=== PATIENT | female | born 1980 | race Caucasian/White ===

== ENCOUNTER 2018-07-13 00:14 | Emergency (ER) | payer MEDICAID, OTHER ==
[2018-07-13] MEDS ORDERED: ONDANSETRON HCL INJ/PF 4 MG/2 ML SDV IV ONE (01:07)
--- NOTE | 2018-07-13 01:09 | ER Document Report ---
ED Medical Screen (RME) - General Chief Complaint: Nausea/Vomiting Stated Complaint: POSSIBLE DEHYDRATION Time Seen by Provider: 07/13/18 01:06 Mode of Arrival: Wheelchair Information source: Patient Notes: 37-year-old female presents to ED for complaint of abdominal pain nausea vomiting and diarrhea for the last 4-5 days. She states she is going through Suboxone withdrawals. She states she has a history of heroin addiction but has not had any in 4 years. She states she does have some marijuana in the system. She states she took some ODT Zofran at 830 but states it did not do her any good and she has been vomiting still. States she has a history of ADHD and had is on Adderall. Only other medical history she is current states is a bilateral tubal ligation and appendectomy. She states she does not smoke drink or do any drugs. Patient is spitting when examined but there was no emesis in the back at the time of assessment. She does have abdominal tenderness. She is curled up in the bed. She denies smoking drinking or any other drugs. She states she has not been able to keep anything down for several days. I have greeted and performed a rapid initial assessment of this patient. A comprehensive ED assessment and evaluation of the patient, analysis of test results and completion of medical decision making process will be conducted by an additional ED providers. TRAVEL OUTSIDE OF THE [place] IN LAST 30 DAYS: No - Related Data Allergies/Adverse Reactions: No Known Allergies Allergy (Unverified 07/13/18 00:20) Physical Exam - Vital signs Vitals: Temp Pulse Resp BP Pulse Ox 99.2 F 62 16 142/101 H 99 07/13/18 00:21 07/13/18 00:21 07/13/18 00:21 07/13/18 00:21 07/13/18 00:21 Course - Vital Signs Vital signs: Temp Pulse Resp BP Pulse Ox 99.2 F 62 16 142/101 H 99 07/13/18 00:21 07/13/18 00:21 07/13/18 00:21 07/13/18 00:21 07/13/18 00:21 Doctor's Discharge - Discharge Referrals: LOCALMD,NO [Primary Care Provider] - Follow up as needed
[2018-07-13] MEDS ORDERED: PROMETHAZINE HCL INJ 25 MG/1 ML VIAL IM ONE (01:14)
[2018-07-13] MEDS ORDERED: CLONIDINE 0.1 MG/24 HR PATCH.TDWK TD ONE (01:15)
--- NOTE | 2018-07-13 01:17 | ER Document Report ---
ED General - General Chief Complaint: Nausea/Vomiting Stated Complaint: POSSIBLE DEHYDRATION Time Seen by Provider: 07/13/18 01:06 Mode of Arrival: Wheelchair Notes: Patient is a 37-year-old female that comes to emergency department for chief complaint of having withdrawal symptoms from stopping Subutex. She states she stopped 5 days ago, she states some days been better but today she had multiple episodes of vomiting and could not stop. She denies diarrhea, fever, passing out, hematemesis. She states that she is on Subutex to stop the heroin addiction but now she does not want to take anything other than the Adderall she takes for ADHD. She did take ODT Zofran at 2030 but this did not help. She has her hand sander at bedside who she is staying with. She denies SI or HI. She denies alcohol, tobacco, she occasionally smokes marijuana for anxiety, she states that she has had a tubal ligation and appendectomy, denies medical history otherwise. TRAVEL OUTSIDE OF THE [place] IN LAST 30 DAYS: No - Related Data Allergies/Adverse Reactions: No Known Allergies Allergy (Unverified 07/13/18 00:20) Past Medical History - General Information source: Patient - Social History Smoking Status: Former Smoker Drug Abuse: Heroin, Prescription drugs Lives with: Friend Family History: Reviewed & Not Pertinent Surgical Hx: Negative - Immunizations Hx Diphtheria, Pertussis, Tetanus Vaccination: Yes Review of Systems - Review of Systems Constitutional: No symptoms reported EENT: No symptoms reported Cardiovascular: No symptoms reported Respiratory: No symptoms reported Gastrointestinal: See HPI Genitourinary: No symptoms reported Female Genitourinary: No symptoms reported Musculoskeletal: No symptoms reported Skin: No symptoms reported Hematologic/Lymphatic: No symptoms reported Neurological/Psychological: See HPI Physical Exam - Vital signs Vitals: Temp Pulse Resp BP Pulse Ox 99.2 F 62 16 142/101 H 99 07/13/18 00:21 07/13/18 00:21 07/13/18 00:21 07/13/18 00:21 07/13/18 00:21 - Notes Notes: GENERAL: Tired but still alert, disheveled, no distress HEAD: Normocephalic, atraumatic. EYES: Pupils equal, round, and reactive to light. Extraocular movements intact. ENT: Oral mucosa dry, tongue midline. NECK: Full range of motion. Supple. Trachea midline. LUNGS: Clear to auscultation bilaterally, no wheezes, rales, or rhonchi. No respiratory distress. HEART: Regular rate and rhythm. No murmur ABDOMEN: Minimal generalized tenderness, no guarding. Non-distended. Bowel sounds present in all 4 quadrants. EXTREMITIES: Moves all 4 extremities spontaneously. No edema, normal radial and dorsalis pedis pulses bilaterally. No cyanosis. BACK: no cervical, thoracic, lumbar midline tenderness. No saddle anesthesia, normal distal neurovascular exam. NEUROLOGICAL: Alert and oriented x3. Normal speech. [cranial nerves II through XII grossly intact]. PSYCH: Patient is apologetic, still interactive, no significant anxiety or distress noted SKIN: Warm, dry, normal turgor. No rashes or lesions noted. Course - Re-evaluation Re-evalutation: Patient restless and tired appearing, interactive, denies SI or HI, states she just needs help with her symptoms for withdrawals. Given Phenergan IM, clonidine patch, gabapentin. Patient fell asleep. On waking up she states she feels much better, she denies any current symptoms, she tolerated fluids without difficulty p.o. she states she is ready to go home with her friend. Chemistry unremarkable, urinalysis unremarkable, drug screen as expected. HCG is negative. Discharged with recommendations for primary care follow-up for additional management, discussed expectations, discussed return precautions. Patient states understanding and agreement. - Vital Signs Vital signs: Temp Pulse Resp BP Pulse Ox 99.2 F 71 16 127/78 H 100 07/13/18 00:21 07/13/18 05:00 07/13/18 05:00 07/13/18 05:00 07/13/18 05:00 - Laboratory Result Diagrams: 07/13/18 03:39 Laboratory results interpreted by me: 07/13/18 02:31 Urine Protein 30 H Urine Ketones TRACE H Discharge - Discharge Clinical Impression: Symptom of drug withdrawal Vomiting Qualifiers: Vomiting type: unspecified Vomiting Intractability: non-intractable Nausea presence: with nausea Qualified Code(s): R11.2 - Nausea with vomiting, unspecified Condition: Stable Disposition: HOME, SELF-CARE Additional Instructions: Take Phenergan, gabapentin for symptoms of withdrawal, apply a small covering over the patch when you shower, this be can be removed after 1 week. Follow-up with primary care for additional evaluation and management. Return if you worsen in anyway including uncontrolled vomiting, vomiting blood, fever, or something is not right. Prescriptions: Gabapentin 2 cap PO BID PRN #30 capsule PRN Reason: Promethazine HCl [Phenergan 25 mg Tablet] 25 mg PO Q6H PRN #20 tablet PRN Reason: Forms: Return to Work Referrals: LOCALMD,NO [NO LOCAL MD] - Follow up as needed
[2018-07-13] MEDS: NORMAL SALINE 1000 ML 1,000 ML IV PRN ×2 (01:53→03:41)
[2018-07-13] MEDS ORDERED: GABAPENTIN 300 MG CAPSULE PO ONE (02:14)
[2018-07-13 02:44] LABS: APPEARANCE,URINE CLOUDY; BILIRUBIN,URINE NEGATIVE (NEGATIVE); GLUCOSE, URINE NEGATIVE (NEGATIVE); KETONES,URINE TRACE mg/dL (NEGATIVE); LEUKOCYTE ESTERASE,URINE NEGATIVE (NEGATIVE); NITRITE,URINE NEGATIVE (NEGATIVE); PROTEIN,URINE 30 mg/dL (NEGATIVE); URINE SPECIFIC GRAVITY 1.027; UROBILINOGEN,URINE NEGATIVE mg/dL (<2.0)
[2018-07-13 02:48] LABS: COLOR,URINE DARK YELLOW
[2018-07-13 04:01] LABS: ALANINE AMINOTRANSFERASE 25 U/L (9-52); ALBUMIN 4.5 g/dL (3.5-5.0); ALKALINE PHOSPHATASE 39 U/L (38-126); ANION GAP 14 (5-19); ASPARTATE AMINO TRANSFERASE 22 U/L (14-36); BILIRUBIN,DIRECT 0.2 mg/dL (0.0-0.4); BILIRUBIN,TOTAL 0.6 mg/dL (0.2-1.3); BLOOD UREA NITROGEN 16 mg/dL (7-20); CALCIUM 9.2 mg/dL (8.4-10.2); CARBON DIOXIDE 24 mmol/L (22-30); CHLORIDE 103 mmol/L (98-107); GLUCOSE 91 mg/dL (75-110); POTASSIUM 3.7 mmol/L (3.6-5.0); SODIUM 141.1 mmol/L (137-145); TOTAL PROTEIN 7.8 g/dL (6.3-8.2)
[2018-07-13 05:03] VITALS: BP 127/78
[2018-07-13 05:03] LABS: URINE BARBITURATES SCREEN NEGATIVE; URINE BENZODIAZEPINES SCREEN NEGATIVE; URINE COCAINE SCREEN NEGATIVE; URINE MARIJUANA (THC) SCREEN UNCONFIRMED POSITIVE; URINE METHADONE SCREEN NEGATIVE; URINE PHENCYCLIDINE SCREEN NEGATIVE
== END 2018-07-13 05:08 | disposition home or self-care (01) ==
LOC: ER 00:14
DX: R11.2 Nausea with vomiting, unspecified (principal); R10.817 Generalized abdominal tenderness; R53.83 Other fatigue; F11.20 Opioid dependence, uncomplicated; F90.9 Attention-deficit hyperactivity disorder, unspecified type; Z79.899 Other long term (current) drug therapy; Z87.891 Personal history of nicotine dependence
CPT/HCPCS: 99284; 96372; 96360; 36415; 84703; 80053; 81001; 80307; J2550; J7030; J3490

== ENCOUNTER 2018-08-21 12:31 | Emergency (ER) | payer SELFPAY ==
[2018-08-21 13:06] LABS: APPEARANCE,URINE CLEAR; BILIRUBIN,URINE NEGATIVE (NEGATIVE); COLOR,URINE AMBER; GLUCOSE, URINE 50 mg/dL (NEGATIVE); KETONES,URINE NEGATIVE (NEGATIVE); LEUKOCYTE ESTERASE,URINE NEGATIVE (NEGATIVE); NITRITE,URINE POSITIVE (NEGATIVE); PROTEIN,URINE 30 mg/dL (NEGATIVE); URINE SPECIFIC GRAVITY 1.019
[2018-08-21] MEDS ORDERED: IBUPROFEN 600 MG TABLET PO ONE (13:38)
[2018-08-21] MEDS ORDERED: AMOXICILLIN TRIHYDRATE 500 MG CAPSULE PO ONE (13:40)
[2018-08-21] MEDS ORDERED: PREDNISONE 20 MG TABLET PO ONE (13:40)
--- NOTE | 2018-08-21 13:41 | ER Document Report ---
ED General - General Chief Complaint: Urinary Problem Stated Complaint: SWOLLEN THROAT Time Seen by Provider: 08/21/18 13:36 Mode of Arrival: Ambulatory Information source: Patient Notes: Chief complaint: Sore throat History of complain:( obtained from----patient) 38 years old female presents today with sore throat, for the last 3 days associated with change of voice. And also having dysuria and frequency. No fever chills or other constitutional symptoms. Onset: As above Duration: Gradual Severity: Mild to moderate Quality: Soreness Context: Unknown Exacerbating factor and relieving factors: None REVIEW OF SYSTEMS: CONSTITUTIONAL : Denies fever, chills, or sweats. Denies recent illness. EENT: Denies eye, ear, throat, or mouth pain or symptoms. Denies nasal or sinus congestion or discharge. Denies throat, tongue, or mouth swelling or difficulty swallowing. CARDIOVASCULAR: Denies chest pain. Denies palpitations or racing or irregular heart beat. Denies ankle edema. RESPIRATORY: Denies cough, cold, or chest congestion. Denies shortness of breath, difficulty breathing, or wheezing. GASTROINTESTINAL: Denies distention. Denies nausea, vomiting, or diarrhea. Denies blood in vomitus, stools, or per rectum. Denies black, tarry stools. Denies constipation. GENITOURINARY: Denies difficulty urinating, painful urination, burning, frequency, blood in urine, or discharge. FEMALE GENITOURINARY: Denies vaginal bleeding, heavy or abnormal periods, irregular periods. Denies vaginal discharge or odor. MUSCULOSKELETAL: Denies back or neck pain or stiffness. Denies joint pain or swelling. SKIN: Denies rash, lesions or sores. HEMATOLOGIC : Denies easy bruising or bleeding. LYMPHATIC: Denies swollen, enlarged glands. NEUROLOGICAL: Denies confusion or altered mental status. Denies passing out or loss of consciousness. Denies dizziness or lightheadedness. Denies headache. Denies weakness or paralysis or loss of use of either side. Denies problems with gait or speech. Denies sensory loss, numbness, or tingling. Denies seizures. PSYCHIATRIC: Denies anxiety or stress. Denies depression, suicidal ideation, or homicidal ideation. ALL OTHER SYSTEMS REVIEWED AND NEGATIVE. PHYSICAL EXAMINATION: GENERAL: Well-appearing, well-nourished and in no acute distress. HEAD: Atraumatic, normocephalic. EYES: Pupils equal round and reactive to light, extraocular movements intact, conjunctiva are normal. ENT: Nares patent, oropharynx erythematous without exudates. Moist mucous membranes. Positive for tonsillar enlargement NECK: Normal range of motion, supple without lymphadenopathy LUNGS: Breath sounds clear to auscultation bilaterally and equal. No wheezes rales or rhonchi. HEART: Regular rate and rhythm without murmurs ABDOMEN: Soft, nontender, nondistended abdomen. No guarding, no rebound. No masses appreciated. Examination of genitals-deferred Musculoskeletal: Normal range of motion, no pitting or edema. No cyanosis. NEUROLOGICAL: Cranial nerves grossly intact. Normal speech, normal gait. Normal sensory, motor exams PSYCH: Normal mood, normal affect. SKIN: Warm, Dry, normal turgor, no rashes or lesions noted. Dictation was performed using [employer] voice recognition software TRAVEL OUTSIDE OF THE [place] IN LAST 30 DAYS: No - HPI Notes: Dictated - Related Data Allergies/Adverse Reactions: No Known Allergies Allergy (Verified 08/21/18 12:33) Past Medical History - Social History Smoking Status: Current Every Day Smoker Cigarette use (# per day): No Chew tobacco use (# tins/day): No Smoking Education Provided: No Frequency of alcohol use: Rare Drug Abuse: Heroin Lives with: Family Family History: Reviewed & Not Pertinent Renal/ Medical History: Denies: Hx Peritoneal Dialysis Past Surgical History: Reports: Hx Tubal Ligation - Immunizations Hx Diphtheria, Pertussis, Tetanus Vaccination: Yes Review of Systems - Review of Systems Notes: Dictated Physical Exam - Vital signs Vitals: Temp Pulse Resp BP Pulse Ox 99.0 F 69 16 127/75 H 100 08/21/18 12:47 08/21/18 12:47 08/21/18 12:47 08/21/18 12:47 08/21/18 12:47 - Notes Notes: Dictated Course - Vital Signs Vital signs: Temp Pulse Resp BP Pulse Ox 99.0 F 69 16 127/75 H 100 08/21/18 12:47 08/21/18 12:47 08/21/18 12:47 08/21/18 12:47 08/21/18 12:47 - Laboratory Laboratory results interpreted by me: 08/21/18 12:34 Urine Protein 30 H Urine Glucose (UA) 50 H Urine Nitrite POSITIVE H Urine Urobilinogen 4.0 H Discharge - Discharge Clinical Impression: Strep pharyngitis UTI (urinary tract infection) Qualifiers: Urinary tract infection type: acute cystitis Hematuria presence: without hematuria Qualified Code(s): N30.00 - Acute cystitis without hematuria Condition: Fair Disposition: HOME, SELF-CARE Instructions: Amoxicillin ([facility]), Urinary Tract Infection, Child ([facility]), Strep Throat ([facility]) Prescriptions: Amoxicillin 1 tab PO QID #40 tab Referrals: CARMELO NASH MD [Primary Care Provider] - Follow up as needed
[2018-08-21 15:20] VITALS: BP 123/84
== END 2018-08-21 15:28 | disposition home or self-care (01) ==
LOC: ER 12:31
DX: J02.0 Streptococcal pharyngitis (principal); N30.00 Acute cystitis without hematuria; F17.200 Nicotine dependence, unspecified, uncomplicated; Z98.51 Tubal ligation status
CPT/HCPCS: 99283; 87880; 81025; 81001; J7512

== ENCOUNTER 2018-08-28 12:01 | Emergency (ER) | payer SELFPAY ==
[2018-08-28 12:31] VITALS: BP 109/80
[2018-08-28] MEDS ORDERED: DEXAMETHASONE SOD PHOS INJ 10 MG/1 ML VIAL IV ONE (12:58)
[2018-08-28] MEDS ORDERED: FAMOTIDINE 20 MG TABLET PO ONE (13:00)
--- NOTE | 2018-08-28 13:01 | ER Document Report ---
ED Skin Rash/Insect Bite/Abscs - General Chief Complaint: Rash Stated Complaint: RASH Time Seen by Provider: 08/28/18 12:47 Mode of Arrival: Ambulatory Information source: Patient Notes: 38-year-old female presents to ED for generalized body rash. She was seen on August 21 for strep and UTI. Patient was started on amoxicillin by mouth at that time. She states she started breaking out in a generalized body rash and states she gave her amoxicillin away because she was she was allergic reaction to the amoxicillin. She states she is still having some urinary symptoms so she came to the emergency room to be reevaluated. She states she is tried to take Benadryl over and over again with no relief from the itching. She states every time she felt bad she would get into a hot bath but it just made things worse. TRAVEL OUTSIDE OF THE [place] IN LAST 30 DAYS: No - HPI Patient complains to provider of: Skin rash/lesion Onset: Other - Several days Onset/Duration: Gradual, Worse Quality of pain: Burning Severity: Moderate Pain Level: 4 Skin Character: Rash Quality of rash: Itchy, Painful, Burning Identify cause: Yes Medication exposure: Antibiotic - Penicillin Exacerbated by: Other Relieved by: Denies - Warm water Similar symptoms previously: No Recently seen / treated by doctor: Yes - Related Data Allergies/Adverse Reactions: Penicillins Allergy (Verified 08/28/18 14:03) Hives Past Medical History - General Information source: Patient - Social History Smoking Status: Former Smoker Cigarette use (# per day): No Chew tobacco use (# tins/day): No Smoking Education Provided: No Frequency of alcohol use: Occasional Drug Abuse: Heroin Lives with: Family Family History: Reviewed & Not Pertinent Patient has suicidal ideation: No Patient has homicidal ideation: No - Past Medical History Cardiac Medical History: Reports: None Pulmonary Medical History: Reports: None EENT Medical History: Reports: None Neurological Medical History: Reports: None Endocrine Medical History: Reports: None Renal/ Medical History: Reports: None Malignancy Medical History: Reports: None GI Medical History: Reports: None Musculoskeletal Medical History: Reports Hx Musculoskeletal Deformity, Reports Hx Musculoskeletal Trauma Skin Medical History: Reports None Psychiatric Medical History: Reports: None Traumatic Medical History: Reports: None Infectious Medical History: Reports: None Past Surgical History: Reports: Hx Tubal Ligation - Immunizations Hx Diphtheria, Pertussis, Tetanus Vaccination: Yes Review of Systems - Review of Systems Constitutional: No symptoms reported EENT: No symptoms reported Cardiovascular: No symptoms reported Respiratory: No symptoms reported Gastrointestinal: No symptoms reported Genitourinary: No symptoms reported Female Genitourinary: No symptoms reported Musculoskeletal: No symptoms reported Skin: Rash Hematologic/Lymphatic: No symptoms reported Neurological/Psychological: No symptoms reported Physical Exam - Vital signs Vitals: Temp Pulse Resp BP Pulse Ox 98.5 F 81 16 109/80 99 08/28/18 12:29 08/28/18 12:29 08/28/18 12:29 08/28/18 12:29 08/28/18 12:29 Interpretation: Normal - General General appearance: Appears well, Alert - HEENT Head: Normocephalic, Atraumatic Eyes: Normal Pupils: PERRL - Respiratory Respiratory status: No respiratory distress Chest status: Nontender Breath sounds: Normal Chest palpation: Normal - Cardiovascular Rhythm: Regular Heart sounds: Normal auscultation Murmur: No - Abdominal Inspection: Normal Distension: No distension Bowel sounds: Normal Tenderness: Nontender Organomegaly: No organomegaly - Back Back: Normal, Nontender - Extremities General upper extremity: Normal inspection, Nontender, Normal color, Normal ROM , Normal temperature General lower extremity: Normal inspection, Nontender, Normal color, Normal ROM , Normal temperature, Normal weight bearing. No: Annmarie's sign - Neurological Neuro grossly intact: Yes Cognition: Normal Orientation: AAOx4 Odalis Coma Scale Eye Opening: Spontaneous Be[place] Coma Scale Verbal: Oriented Odalis Coma Scale Motor: Obeys Commands Beardsley Coma Scale Total: 15 Speech: Normal Motor strength normal: LUE, RUE, LLE, RLE Sensory: Normal - Psychological Associated symptoms: Normal affect, Normal mood - Skin Skin Temperature: Warm Skin Moisture: Dry Skin Color: Normal Skin irregularity: Rash Location of irregularity: Generalized Character of irregularity: Maculopapular, Erythematous, Other - Patient complained of burning and itching there was severe and worse with warm showers Course - Re-evaluation Re-evalutation: 08/28/18 17:19 Patient was treated with Pepcid and Decadron and discharged home with instructions to use Benadryl Pepcid for her rash. Patient is having allergic reaction to penicillin. She was instructed not to take any more penicillin amoxicillin. Patient was instructed not to take hot showers but to use cold showers or baths as the hot showers and getting overheated made the rash more prominent and more urticarial. - Vital Signs Vital signs: Temp Pulse Resp BP Pulse Ox 98.5 F 81 16 109/80 99 08/28/18 12:29 08/28/18 12:29 08/28/18 12:29 08/28/18 12:29 08/28/18 12:29 - Laboratory Result Diagrams: 08/28/18 13:13 Laboratory results interpreted by me: 08/28/18 08/28/18 13:13 13:13 WBC 11.1 H RDW 14.9 H Absolute Neutrophils 8.3 H Urine Protein 30 H Discharge - Discharge Clinical Impression: Allergic reaction to penicillin Qualifiers: Encounter type: initial encounter Qualified Code(s): T36.0X5A - Adverse effect of penicillins, initial encounter Condition: Stable Disposition: HOME, SELF-CARE Instructions: Family Physicians / Practices Additional Instructions: ACUTE ALLERGIC REACTION: Your symptoms are due to an allergic reaction. Allergy can cause hives, swelling of the hands, feet, and face, hoarseness, and difficulty swallowing or breathing. It may be due to exposure to medication, animal dander, foods, infection, or insect bites. Medication is a common cause, even when prior use of this same medication caused no problems. Acute treatment may include adrenalin and antihistamines. Usually, the specific allergic agent can't be identified unless repeated episodes occur. Home treatment includes the following: (1) Stop any suspicious medications. This will be discussed with you. (2) Oral antihistamines for the next four to five days. Example, diphenhydramine (Benadryl) every four hours. (3) You may also use cimetidine (Tagamet), ranitidine (Zantac), or famotidine ( Pepcid) every four hours if diphenhydramine is not controlling itching and hives. (4) Avoid aspirin until the hives completely disappear. (5) Avoid hot baths or showers until the hives are completely gone. Call the doctor if faintness, difficulty swallowing, tightness in the chest , or wheezing occurs. STEROID MEDICATION INJECTION: You have been given an injection of medicine of the cortisone/steroid class. This medication is used to control inflammation or allergy. It is often continued as a pill for a short period of time, until the acute process subsides. There are usually no side effects from short-term use of cortisone-like medications. Some persons feel an increased sense of well-being and are not sleepy at bedtime. Long-term use of cortisone medications is best avoided, unless required for a severe condition. If your condition does not remit, or relapses after the course of corticosteroid medication, you should consult your physician. ACID-SUPPRESSING MEDICATION: You have a prescription for medicine which reduces the stomach's secretion of acid. Examples include Zantac, Tagament, and Pepcid. These drugs are often used to allow healing of ulcers or esophagitis. They may be needed to prevent recurrence of ulcers in some patients, or to prevent damage from acid reflux in the esophagus. Take all medication as prescribed, even after the pain is gone. Regular antacids may be added as needed if you have symptoms while taking this medicine. These medications sometimes are prescribed for allergic reactions because they have anti-histaminic effects and relieve the rash and itching of the reaction. There are usually no side effects from this medication. But, in rare cases and particularly in the elderly, serious problems can occur. Contact your doctor if there is fever, rash, hallucinations, confusion, or unusual bruising. Contact your doctor at once if you develop lightheadedness, black or bloody stool, or bloody vomitus. USE OF DIPHENHYDRAMINE: The use of diphenhydramine (Benadryl) has been recommended to control allergic symptoms. The 25 mg strength is available over- the-counter, as well as the elixir. This antihistamine is used for many symptoms. It's useful for itching, watering eyes and nose, allergic swelling, hives, and insect stings. The medication can be repeated four times daily. Age Elixir (12.5 mg/tsp) 25 mg pill 2-3 yr 1/2 tsp 4-8 yr 1 tsp 9-14 yr 2 tsp one tab adult 1-2 tabs Antihistamines may cause drowsiness, especially with the first dose. Do not operate machinery or drive while under the effects of the medication. Do not combine the medication with alcohol, or with any other medication without talking to your doctor. FOLLOW-UP CARE: If you have been referred to a physician for follow-up care, call the physician s office for an appointment as you were instructed or within the next two days. If you experience worsening or a significant change in your symptoms, notify the physician immediately or return to the Emergency Department at any time for re-evaluation. Referrals: [facility] [Provider Group] - Follow up as needed
[2018-08-28 13:24] LABS: ABSOLUTE BASOPHILS # (AUTO) 0.1 10^3/uL (0.0-0.2); ABSOLUTE EOSINOPHILS # (AUTO) 0.1 10^3/uL (0.0-0.6); ABSOLUTE LYMPHOCYTES (AUTO) 2.1 10^3/uL (0.5-4.7); ABSOLUTE MONOCYTES (AUTO) 0.5 10^3/uL (0.1-1.4); ABSOLUTE NEUT (AUTO) 8.3 10^3/uL (1.7-8.2); BASOPHILS % (AUTO) 0.8 % (0-2); EOSINOPHILS % (AUTO) 0.9 % (0-6); HEMATOCRIT 38.6 % (36.0-47.0); LYMPHOCYTES % (AUTO) 19.1 % (13-45); MEAN CORPUSCULAR HEMOGLOBIN 28.3 pg (27.0-33.4); MEAN CORPUSCULAR HGB CONC 33.6 g/dL (32.0-36.0); MEAN CORPUSCULAR VOLUME 84 fl (80-97); MONOCYTES % (AUTO) 4.8 % (3-13); PLATELET COUNT 424 10^3/uL (150-450); RED BLOOD COUNT 4.59 10^6/uL (3.72-5.28); RED CELL DISTRIBUTION WIDTH 14.9 % (11.5-14.0); SEGMENTED NEUTROPHILS % (AUTO) 74.4 % (42-78); TOTAL CELLS COUNTED % (AUTO) 100 %; WHITE BLOOD COUNT 11.1 10^3/uL (4.0-10.5)
[2018-08-28 13:36] LABS: APPEARANCE,URINE SLIGHTLY-CLOUDY; BILIRUBIN,URINE NEGATIVE (NEGATIVE); COLOR,URINE YELLOW; GLUCOSE, URINE NEGATIVE (NEGATIVE); KETONES,URINE NEGATIVE (NEGATIVE); LEUKOCYTE ESTERASE,URINE NEGATIVE (NEGATIVE); NITRITE,URINE NEGATIVE (NEGATIVE); PROTEIN,URINE 30 mg/dL (NEGATIVE); URINE SPECIFIC GRAVITY 1.013; UROBILINOGEN,URINE NEGATIVE mg/dL (<2.0)
== END 2018-08-28 14:13 | disposition home or self-care (01) ==
LOC: ER 12:01
DX: L27.0 Generalized skin eruption due to drugs and medicaments taken internally (principal); T36.0X5A Adverse effect of penicillins, initial encounter; R39.9 Unspecified symptoms and signs involving the genitourinary system; Z87.891 Personal history of nicotine dependence; F11.10 Opioid abuse, uncomplicated
CPT/HCPCS: 99283; 96374; 36415; 87086; 85025; 87088; 86308; 81001; 87186; J1100